=== PATIENT | female | born 2000 | race African-American/Black ===

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

== ENCOUNTER → 2022-06-13 | Outpatient (CLI) | payer MEDICAID | LOC: RAD 12:07 | DX: M25.561 Pain in right knee (principal); M25.562 Pain in left knee; R07.81 Pleurodynia ==

== ENCOUNTER → 2022-08-22 | Outpatient (CLI) | payer MEDICAID ==
[2022-08-22 15:11] LABS: ALBUMIN 4.2 g/dL (3.5-5.0); POTASSIUM 4.1 mmol/L (3.5-5.1)
[2022-08-22 15:12] LABS: CALCIUM 9.7 mg/dL (8.3-10.5)
[2022-08-22 15:14] LABS: TOTAL PROTEIN 7.1 g/dL (6.4-8.3)
[2022-08-22 15:15] LABS: BASO # 0.03 K/mm3 (0.02-0.10); EOS # 0.07 K/mm3 (0.04-0.40); EOS % 1.1 % (0.1-4.0); HEMATOCRIT 38.9 % (35.0-45.0); LYMPH# 2.19 K/mm3 (1.20-3.40); MEAN CELL VOLUME 88 fl (78-95); MEAN CORPUSCULAR HEMOGLOBIN 29 pg (26-32); MEAN CORPUSCULAR HGB CONC 33 g/dL (33-37); MEAN PLATELET VOLUME 10.5 fl (7.4-10.4); MONO # 0.46 K/mm3 (0.10-0.60); NEU # 3.45 K/mm3 (1.40-6.50); PLATELET COUNT 268 K/mm3 (130-400); RED BLOOD COUNT 4.44 M/mm3 (4.10-5.30); TOTAL BILIRUBIN 0.2 mg/dL (0.2-1.2); WHITE BLOOD COUNT 6.2 K/mm3 (4.8-10.8)
== END ==
LOC: LAB 14:47
PROVIDERS: Family Medicine
DX: J30.9 Allergic rhinitis, unspecified (principal); F90.9 Attention-deficit hyperactivity disorder, unspecified type; F32.9 Major depressive disorder, single episode, unspecified; G47.00 Insomnia, unspecified; K58.9 Irritable bowel syndrome, unspecified; G43.909 Migraine, unspecified, not intractable, without status migrainosus; J45.40 Moderate persistent asthma, uncomplicated; E66.9 Obesity, unspecified; M08.99 Juvenile arthritis, unspecified, multiple sites; N94.4 Primary dysmenorrhea; H10.32 Unspecified acute conjunctivitis, left eye; Q79.60 Ehlers-Danlos syndrome, unspecified; E55.9 Vitamin D deficiency, unspecified; R42 Dizziness and giddiness